=== PATIENT | male | born 1980 | race Hispanic/Latino ===

== ENCOUNTER → 2022-05-20 | Outpatient (CLI) | payer BC | END | disposition home or self-care (01) | LOC: RAH 11:24 | PROVIDERS: ATTEND Internal Medicine | DX: K80.20 Calculus of gallbladder without cholecystitis without obstruction (principal) | CPT/HCPCS: 76700 ==

== ENCOUNTER → 2022-09-29 | Outpatient (CLI) | payer BC | END | disposition home or self-care (01) | LOC: RAH 08:34 | PROVIDERS: ATTEND Family Medicine | DX: M25.562 Pain in left knee (principal) | CPT/HCPCS: 73562 ==